=== PATIENT | male | born 1985 | race Caucasian/White ===

== ENCOUNTER 2025-08-31 14:59 | Inpatient (IN) ==
--- NOTE | 2025-08-31 15:32 | Emergency Department Note ---
History of Present Illness General Chief complaint: Abdominal Pain Stated complaint: FLANK PAIN Time Seen by Provider: 08/31/25 15:31 History of Present Illness Maximum Pain Intensity: 8 This is a 40-year-old male with a history of appendectomy that presents to the emergency department via private vehicle with complaints of "right lower quadrant abdominal pain". Patient states this began this past Saturday evening around midnight. He notes that he has been feeling well since his appendectomy about a year ago. Current pain 10/10 with movement, 5/10 at rest. No constipation, diarrhea, nausea, vomiting, chest pain, dyspnea. No fevers or chills. Appendectomy performed he notes at [facility]. Home Medications Medication Instructions Recorded Confirmed Type No Known Home Medications 08/31/25 08/31/25 History Allergies Allergy/AdvReac Type Severity Reaction Status Date / Time No Known Allergies Allergy Unverified 01/11/22 00:46 Past Med/Surg History Problem List (Updated 08/31/25 @ 23:47 by Bruce Mercado PA-C) Abnormal computed tomography of abdomen and pelvis (Acute) History of appendectomy (Acute) Abdominal pain, acute, right lower quadrant (Acute) Hyponatremia Intra-abdominal abscess (Acute) Current smoker No significant past surgical history No chronic diseases present Cellulitis (Acute) Cellulitis (Acute) Surgical History (Updated 08/31/25 @ 23:47 by Bruce Mercado PA-C) History of appendectomy Family History (Updated 08/31/25 @ 19:49 by Jackie Borges MD) Other Family history non-contributory Social History (Updated 08/31/25 @ 19:50 by Jackie Borges MD) Smoking Status: Current every day smoker Tobacco Type: Cigarettes packs per day: 0.5; Cigarettes Per Day: half a pack; Tobacco Cessation Education Requested by Patient: No Hx Alcohol Use: No Hx Substance Use: No Preferred Language: German Communication Ability: Effective Insurance Sales Manager Required: No Beliefs That Will Affect Care: None Current Living Situation: Alone current occupational status: disabled 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" Feels Safe at Home: Yes Safety Concerns: Feels Safe At This Time Review of Systems A total of 10 systems reviewed and were otherwise negative Physical Exam Vital Signs Vital Signs - 24 hr 08/31/25 15:09 08/31/25 18:21 08/31/25 18:27 Temperature 36.6 C Temperature Source Temporal Artery Scan Pulse Rate 112 H Pulse Rate [Right Finger] 82 Respiratory Rate 18 16 Respiratory Effort / Characteristics Non-Labored Spontaneous Non-Labored Spontaneous Respiratory Depth Normal Normal Respiratory Pattern Regular Blood Pressure 119/73 Blood Pressure [Right Arm] 115/75 Blood Pressure Mean 88 Blood Pressure Mean [Right Arm] 88 Pulse Oximetry 98 98 Oxygen Delivery Method Room Air Room Air Room Air Sepsis Recent Fever Within 48 Hours No Sepsis New/Unexplained Change in Mental Status No Sepsis Action Taken by Nursing No Action Required 08/31/25 19:10 Temperature Temperature Source Pulse Rate Pulse Rate [Right Finger] 85 Respiratory Rate 20 Respiratory Effort / Characteristics Respiratory Depth Respiratory Pattern Blood Pressure Blood Pressure [Right Arm] 120/78 Blood Pressure Mean Blood Pressure Mean [Right Arm] 92 Pulse Oximetry 97 Oxygen Delivery Method Room Air Sepsis Recent Fever Within 48 Hours Sepsis New/Unexplained Change in Mental Status Sepsis Action Taken by Nursing VITAL SIGNS - Vital signs and nursing notes were reviewed. Tachycardic, otherwise stable and afebrile GENERAL - 40-year-old male appearing his stated age who is in no acute distress. Communicates well with provider and answers questions appropriately. SKIN - Without rashes. HEAD - NC/AT. EYES - Sclera anicteric. NECK - Neck with FROM. No nuchal rigidity. LUNGS - CTA CARDIAC - RRR ABDOMEN - Abdominal contour normal without pulsations or visible masses. BS normoactive all four quadrants. RLQ abd ttp noted. No palpable masses, hepatosplenomegaly, or ascites noted. EXTREMITIES - No clubbing or peripheral cyanosis. +5/5 strength noted in UE/LE bilaterally. NEUROLOGIC - Cranial nerves II through XII grossly intact. PSYCH -alert, oriented and pleasant on exam Course Administered Medications Hydromorphone HCl (Hydromorphone Inj 1 Mg/Ml Syringe) 1 mg IV Q4 PRN PRN Reason: Severe Pain (Scale 7, 8, 9,10) Stop: 09/14/25 22:08 Last Admin: 08/31/25 23:30 Dose: 1 mg Documented By: [id number] Sodium Chloride (Nss) 1,000 mls @ 125 mls/hr IV .Q8H TARI Stop: 09/01/25 14:44 Last Admin: 08/31/25 23:30 Dose: 125 mls/hr Documented By: [id number] Nicotine (Nicotine 21 Mg/24 Hr Tdsy) 1 patch TD QAM TARI Stop: 09/30/25 19:29 Last Admin: 08/31/25 20:08 Dose: 1 patch Documented By: BRIELLE Discontinued Medications Hydromorphone HCl (Hydromorphone Inj 0.5 Mg/0.5 Ml Syr) 0.5 mg IV NOW STA Stop: 08/31/25 17:59 Last Admin: 08/31/25 19:10 Dose: 0.5 mg Documented By: CHRISTINE Sodium Chloride (Nss) 1,000 mls @ 999 mls/hr IV .Q1H1M ONE Stop: 08/31/25 16:49 Last Infusion: 08/31/25 18:23 Dose: Infused Documented By: Admin: 08/31/25 16:13 Dose: 999 mls/hr Documented By: DEL Piperacillin Sod/Tazobactam Sod (Zosyn) 4.5 gm in 100 mls @ 200 mls/hr IV NOW ONE; Protocol Stop: 08/31/25 18:19 Last Infusion: 08/31/25 19:52 Dose: Infused Documented By: Admin: 08/31/25 19:09 Dose: 200 mls/hr Documented By: CHRISTINE Ioversol (Optiray 320 100ml) 90 ml IV ONCE ONE Stop: 08/31/25 17:12 Last Admin: 08/31/25 17:11 Dose: 90 ml Documented By: EARNESTINE Lorazepam (Lorazepam 1 Mg/1 Ml Syr Ed Inj Use) 1 mg IV NOW STA Stop: 08/31/25 19:54 Last Admin: 08/31/25 20:09 Dose: 1 mg Documented By: BRIELLE Morphine Sulfate (Morphine Sulfate 4 Mg/Ml 1 Ml Carp\\Vial) 4 mg IV NOW STA Stop: 08/31/25 15:50 Last Admin: 08/31/25 16:14 Dose: 4 mg Documented By: DEL Ondansetron HCl (Ondansetron Inj 2 Mg/Ml 2 Ml Vial) 4 mg IV NOW STA Stop: 08/31/25 15:50 Last Admin: 08/31/25 16:14 Dose: 4 mg Documented By: DEL Medical Decision Making Laboratory Data 08/31/25 16:05 08/31/25 16:05 Lab Results 10/08/31/25 08/31/25 Range/Units 16:05 18:25 18:26 WBC 10.35 (4.8-10.8) K/ul RBC 4.98 (4.70-6.10) M/uL Hgb 14.9 (14.0-18.0) g/dl Hct 44.4 (42.0-52.0) % MCV 89.2 (80.0-100.0) fL MCH 29.9 (25.0-34.0) pg MCHC 33.6 (32.0-36.0) g/dL RDW Std Deviation 42.5 (36.4-46.3) fL RDW Coeff of Tracy 13.0 (11.5-14.5) % Plt Count 226 (130-400) K/uL MPV 9.4 (9.4-12.4) fL Immature Gran % (Auto) 0.3 % Neut % (Auto) 74.8 % Lymph % (Auto) 13.7 % Rogers % (Auto) 9.9 % Eos % (Auto) 1.0 % Baso % (Auto) 0.3 % Neut # (Auto) 7.75 H (1.40-6.50) K/uL Lymph # (Auto) 1.42 (1.20-3.40) K/uL Rogers # (Auto) 1.02 H (0.11-0.59) K/uL Eos # (Auto) 0.10 (0.00-0.50) K/uL Baso # (Auto) 0.03 (0.00-0.20) K/uL Immature Gran # (Auto) 0.03 (0.01-0.20) K/uL Sodium 135 L (136-145) mmol/L Potassium 4.0 (3.5-5.1) mmol/L Chloride 103 (98-107) mmol/L Carbon Dioxide 27 (21-32) mmol/L Anion Gap 5 (3-11) BUN 9 (6-23) mg/dl Creatinine 0.95 (0.6-1.4) mg/dl Est Cr Clr Drug Dosing 107.8 ml/min eGFR 103.13 BUN/Creatinine Ratio 9.5 L (10-20) Glucose 87 (70-99(Fasting)) mg/dl Lactate 0.9 (0.4-2.0) mmol/L Calcium 9.1 (8.6-10.3) mg/dl Total Bilirubin 0.8 (0.2-1.0) mg/dl AST 13 (13-39) U/L ALT 6 L (7-52) U/L Alkaline Phosphatase 84 (34-104) U/L Total Protein 7.1 (6.0-8.3) gm/dl Albumin 3.9 (3.4-5.0) gm/dl Globulin 3.2 (2.5-4.0) gm/dl Albumin/Globulin Ratio 1.2 (0.9-2) Lipase < 3 L (11-82) U/L Procalcitonin 0.10 (0-0.5) ng/ml Urine Color Yellow Urine Appearance Clear (Clear) Urine pH 6.5 (4.5-7.5) Ur Specific Alpine > 1.045 H (1.000-1.030) Urine Protein Negative (Negative) Urine Glucose (UA) Negative (Negative) Urine Ketones Trace H (Negative) Urine Blood Trace H (Negative) Urine Nitrite Negative (Negative) Urine Bilirubin Negative (Negative) Urine Urobilinogen Negative (Negative) Ur Leukocyte Esterase Negative (Negative) Urine WBC (Auto) 0-5 (0-5) /hpf Urine RBC (Auto) 0-2 (0-2) /hpf U Hyaline Cast (Auto) 0-2 (0-2) /lpf U Epithel Cells (Auto) 0-2 (0-2) /hpf Urine Bacteria (Auto) None Seen (None Seen) Urine Comment Imaging Data Radiologist's Impression: Abdomen/Pelvis CT 08/31/25 15:49 EXAMINATION: Abdomen and pelvis CT with CLINICAL HISTORY: Right lower quadrant pain, history appendectomy. PRIORS: None TECHNIQUE: Contiguous axial images were obtained through the abdomen and pelvis with the use of intravenous contrast. Sagittal and coronal reformations are supplied. FINDINGS: Hypoventilatory changes in the lung bases. Liver is enlarged measuring 20 cm. The gallbladder, portal vein, pancreas, spleen, under distended stomach, adrenals, aorta and IVC are morphologically unremarkable. Kidneys enhance symmetrically with no hydronephrosis. A large amount of soft tissue swelling in the right lower quadrant. A enhancing fluid collection is present on image 53, series 2 measuring 2.8 x 2.0 cm. A fluid-filled tubular structure is noted arising from the cecum with abrupt truncation, image 53, series 2 withextraluminal adjacent coarse calcifications present. The cecum wall is thickened. An ileocecal valve is noted with the terminal ileum not well-visualized. What appears to be the terminal ileum is indistinct in appearance with wall thickening. No dilated loops of bowel or bowel obstruction. Fluid present in some loops of small bowel. No extraluminal gas. Enlarged lymph nodes noted in the right lower quadrant. Moderate free fluid in the pelvis with increased cellularity. No extraluminal gas or adenopathy urinary bladder distends normally. Seminal vesicles symmetric. Prostate not enlarged. A moderate amount of formed stool and gas present. No acute osseous abnormality. IMPRESSION: Right lower quadrant abscess with large amount of inflammatory change/edema, adenopathy and complicated fluid in the pelvis. The possibility of a tubular structure arising from the cecum is raised which could suggest ruptured appendicitis, though the offered clinical history suggests the patient has had appendectomy. Please confirm this information. Alternatively, complicated terminal ileitis and/or colitis of the ascending colon/cecum is also on the differential diagnosis with adjacent abscess. Surgical consultation is required. The critical results protocol has been activated at 5:36 PM PST 08/31/2025. ACT 112: Positive. There are findings on this examination that require communication between the performing entity and the patient following Patient Test Result Information Act ([place] ACT 112) guidelines. Electronically signed by Elham Monge 08-31-2025 5:39 PM MDM Narrative Patient was seen and evaluated as above in room D05. Review was performed of nursing notes and vital signs. After obtaining a thorough history and physical examination the above work up was performed. Patient presents to us today with the above symptoms. He has abdominal pain. He has tenderness on exam but no guarding or rigidity. Vital signs stable. Options of care were discussed with the patient. IV access was established. Labs were drawn. There is no leukocytosis or concerning anemia. There is mild hyponatremia 135. No evidence of kidney or liver failure. Lipase is not elevated. Procalcitonin within normal range. Urinalysis without infection. A CT scan was obtained of the abdomen/pelvis. Results as above. Right lower quadrant abscess with large amount of inflammatory change/edema, adenopathy and complicated fluid in the pelvis per radiologist as above. I did order IV Zosyn for coverage. [id number] spoke with Dr. Kong, general surgeon. He does recommend IV antibiotics, we will keep the patient n.p.o. after midnight. Medicine admission and routine general surgery consultation. I did discuss with the hospitalist service. Please refer to further documentation regarding his stay. GCS: 15 In the evaluation and treatment of this patient the following differential diagnoses were entertained: Appendicitis, diverticulitis, UTI, pyelonephritis, abscess, perforation, among others Attending Attestation: I Logan Mas MD I have reviewed the advanced practitioner's documentation and agree with the plan of care. I accept the responsibility for the associated risk of managing the patient. I performed a substantive portion of the visit including involvement in all aspects of medical decision making. Impression & Plan Intra-abdominal abscess, Abdominal pain, acute, right lower quadrant, History of appendectomy, Abnormal computed tomography of abdomen and pelvis Discharge Plan Visit Data Chief Complaint: Abdominal Pain Stated Complaint: FLANK PAIN ED Provider: Logan Mas ED Midlevel Provider: Bruce Mercado Discharge Problem: Intra-abdominal abscess, Abdominal pain, acute, right lower quadrant, History of appendectomy, Abnormal computed tomography of abdomen and pelvis Patient Disposition: Admitted As Inpatient Condition: Good Discharge Instructions Interventions: ED Discharge Assessment Last Done: 08/31/25 21:51
[2025-08-31] MEDS: SODIUM CHLORIDE 0.9% 1,000 ML IV ONE (16:13)
[2025-08-31] MEDS: ONDANSETRON INJ 2 MG/ML 2 ML VIAL IV STA (16:14)
[2025-08-31] MEDS: MoRPHine SULFATE 4 MG/ML 1 ML CARP\\VIAL IV STA (16:14)
[2025-08-31 16:24] LABS: Hematocrit (blood only) 44.4 % (42.0-52.0); Hemoglobin 14.9 g/dl (14.0-18.0); Immature Granulocytes # (auto) 0.03 K/uL (0.01-0.20); Immature Granulocytes % (auto) 0.3 %; Mean Corpuscular Hemoglobin 29.9 pg (25.0-34.0); Mean Corpuscular Volume 89.2 fL (80.0-100.0); Platelet Count 226 K/uL (130-400); RDW Standard Deviation 42.5 fL (36.4-46.3); Red Blood Count 4.98 M/uL (4.70-6.10); White Blood Count 10.35 K/ul (4.8-10.8)
[2025-08-31 16:48] LABS: Anion Gap 5 (3-11); Blood Urea Nitrogen 9 mg/dl (6-23); Calcium 9.1 mg/dl (8.6-10.3); Carbon Dioxide 27 mmol/L (21-32); Chloride 103 mmol/L (98-107); Creatinine Clr Calc Pharmacy 107.8 ml/min; Glucose 87 mg/dl (70-99(Fasting)); Potassium 4.0 mmol/L (3.5-5.1); Sodium 135 mmol/L (136-145)
[2025-08-31 16:54] LABS: Alanine Aminotransferase 6 U/L (7-52); Albumin Globulin Ratio 1.2 (0.9-2); Albumin Level 3.9 gm/dl (3.4-5.0); Alkaline Phosphatase 84 U/L (34-104); Bilirubin,Total 0.8 mg/dl (0.2-1.0); Globulin 3.2 gm/dl (2.5-4.0); Lipase < 3 U/L (11-82); Total Protein 7.1 gm/dl (6.0-8.3)
[2025-08-31] MEDS: OPTIRAY 320 100ml IV ONE (17:11)
--- NOTE | 2025-08-31 17:39 | CT Scan Report ---
EXAMINATION: Abdomen and pelvis CT with CLINICAL HISTORY: Right lower quadrant pain, history appendectomy. PRIORS: None TECHNIQUE: Contiguous axial images were obtained through the abdomen and pelvis with the use of intravenous contrast. Sagittal and coronal reformations are supplied. FINDINGS: Hypoventilatory changes in the lung bases. Liver is enlarged measuring 20 cm. The gallbladder, portal vein, pancreas, spleen, under distended stomach, adrenals, aorta and IVC are morphologically unremarkable. Kidneys enhance symmetrically with no hydronephrosis. A large amount of soft tissue swelling in the right lower quadrant. A enhancing fluid collection is present on image 53, series 2 measuring 2.8 x 2.0 cm. A fluid-filled tubular structure is noted arising from the cecum with abrupt truncation, image 53, series 2 withextraluminal adjacent coarse calcifications present. The cecum wall is thickened. An ileocecal valve is noted with the terminal ileum not well-visualized. What appears to be the terminal ileum is indistinct in appearance with wall thickening. No dilated loops of bowel or bowel obstruction. Fluid present in some loops of small bowel. No extraluminal gas. Enlarged lymph nodes noted in the right lower quadrant. Moderate free fluid in the pelvis with increased cellularity. No extraluminal gas or adenopathy urinary bladder distends normally. Seminal vesicles symmetric. Prostate not enlarged. A moderate amount of formed stool and gas present. No acute osseous abnormality. IMPRESSION: Right lower quadrant abscess with large amount of inflammatory change/edema, adenopathy and complicated fluid in the pelvis. The possibility of a tubular structure arising from the cecum is raised which could suggest ruptured appendicitis, though the offered clinical history suggests the patient has had appendectomy. Please confirm this information. Alternatively, complicated terminal ileitis and/or colitis of the ascending colon/cecum is also on the differential diagnosis with adjacent abscess. Surgical consultation is required. The critical results protocol has been activated at 5:36 PM PST 08/31/2025. ACT 112: Positive. There are findings on this examination that require communication between the performing entity and the patient following Patient Test Result Information Act ([place] ACT 112) guidelines. Electronically signed by Elham Monge 08-31-2025 5:39 PM
[2025-08-31 18:37] LABS: Appearance Urine Clear (Clear); Bacteria Urine Automated None Seen (None Seen); Cast Urine Automated 0-2 /lpf (0-2); Epithelial Cell Urine Auto 0-2 /hpf (0-2); Glucose Urine UA Negative (Negative); RBC Urine Automated 0-2 /hpf (0-2); WBC Urine Automated 0-5 /hpf (0-5)
--- NOTE | 2025-08-31 19:06 | History & Physical Report ---
Date of Service August 31, 2025 Assessment & Plan (1) Intra-abdominal abscess: (2) Hyponatremia: (3) Current smoker: Plan This patient is a 40-year-old male with a history of smoking and prior appendectomy in 2023 who presents to the ED with right lower quadrant abdominal pain that came on on the night of 08/29. The pain is severe at a 10/10 with movement, 5/10 at rest. It is in the right lower quadrant and radiates around to the right flank and is constant. His last bowel movement was on 08/28 and denies blood in the stool. Denies nausea or vomiting, no fevers or chills, no hematuria or urinary symptoms. His appendectomy was performed at [facility] and copies of the hospital records from that time were being obtained at the time of admission. In the ED, he was found to have a normal CBC, normal CMP, lipase, lactate, and procalcitonin. His UA showed trace blood and ketones but was negative for RBCs. A CT A/P with IV contrast showed an enlarged liver at 20 cm, a large amount of soft tissue swelling in the right lower quadrant with an enhancing fluid collection measuring 2.8 x 2.0 cm. There is also a fluid-filled tubular structure noted arising from the cecum and cecal wall and terminal ileum thickening with moderate fleet fluid in the pelvis but no pneumoperitoneum or obstruction. Radiologist thought this was likely a RLQ abscess with a large amount of inflammatory change/edema, adenopathy, and complicated fluid in the pelvis which could represent ruptured appendicitis although he has a history of appendectomy. Alternatively, could represent complicated terminal ileitis and/or colitis of the ascending colon/cecum with adjacent abscess. The on-call surgeon was contacted who recommended admission for IV antibiotics, to keep n.p.o. and for surgical consultation routinely. He will be admitted for right lower quadrant intra-abdominal abscess with possible ileitis/colitis versus ruptured appendicitis. #Right lower quadrant abdominal pain/intra-abdominal abscess-possible ileitis/colitis versus ruptured appendicitis of the remnant appendix? No leukocytosis or lactic acidosis, no fevers or chills and vital signs are normal except for mild tachycardia on arrival which is now improved. He remains hemodynamically stable. He has never had a colonoscopy and no family history of GI cancers. No anemia. - Admit to medical/surgical unit - Keep n.p.o. and give LR at 125 mL/h - Continue IV Zosyn started in the ED - Consult general surgery for further review of CT scan and to see if needs exploratory laparoscopy/laparotomy - Will try to obtain records from hospitalization at [facility] to include operative report and pathology report #Current smoker-start nicotine patch 21 mg daily if desired - Give IV Ativan as needed for anxiety #Hyponatremia-mild at 135 - Give IV fluids - Follow BMP in the morning DVT prophylaxis-SCDs only in case of need for surgery Disposition-admit to medical/surgical unit History of Present Illness Chief Complaint: Abdominal pain Primary Care Provider: TOY Rouse This patient is a 40-year-old male with a history of smoking and prior appendectomy in 2023 who presents to the ED with right lower quadrant abdominal pain that came on on the night of 08/29. The pain is severe at a 10/10 with movement, 5/10 at rest. It is in the right lower quadrant and radiates around to the right flank and is constant. His last bowel movement was on 08/28 and denies blood in the stool. Denies nausea or vomiting, no fevers or chills, no hematuria or urinary symptoms. His appendectomy was performed at [facility] and copies of the hospital records from that time were being obtained at the time of admission. In the ED, he was found to have a normal CBC, normal CMP, lipase, lactate, and procalcitonin. His UA showed trace blood and ketones but was negative for RBCs. A CT A/P with IV contrast showed an enlarged liver at 20 cm, a large amount of soft tissue swelling in the right lower quadrant with an enhancing fluid collection measuring 2.8 x 2.0 cm. There is also a fluid-filled tubular structure noted arising from the cecum and cecal wall and terminal ileum thickening with moderate fleet fluid in the pelvis but no pneumoperitoneum or obstruction. Radiologist thought this was likely a RLQ abscess with a large amount of inflammatory change/edema, adenopathy, and complicated fluid in the pelvis which could represent ruptured appendicitis although he has a history of appendectomy. Alternatively, could represent complicated terminal ileitis and/or colitis of the ascending colon/cecum with adjacent abscess. The on-call surgeon was contacted who recommended admission for IV antibiotics, to keep n.p.o. and for surgical consultation routinely. He will be admitted for right lower quadrant intra-abdominal abscess with possible ileitis/colitis versus ruptured appendicitis. Allergies Allergy/AdvReac Type Severity Reaction Status Date / Time No Known Allergies Allergy Unverified 01/11/22 00:46 Home Medications Medication Instructions Recorded Confirmed Type No Known Home Medications 08/31/25 08/31/25 History Past Med/Surg History Problem List Hyponatremia Intra-abdominal abscess Current smoker No significant past surgical history No chronic diseases present Cellulitis (Acute) Cellulitis (Acute) Surgical History (Updated 08/31/25 @ 19:17 by Jackie Borges MD) History of appendectomy Family History (Updated 08/31/25 @ 19:49 by Jackie Borges MD) Other Family history non-contributory Social History (Updated 08/31/25 @ 19:50 by Jackie Borges MD) Smoking Status: Current every day smoker Tobacco Type: Cigarettes packs per day: 0.5; Hx Alcohol Use: No Hx Substance Use: No Preferred Language: Swazi current occupational status: disabled 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" Feels Safe at Home: Yes Review of Systems Review of Systems: All systems reviewed & are unremarkable except as noted in HPI & below Physical Exam Constitutional: WD/WN, vitals as above Eyes: PERRL, conjunctivae normal, anicteric sclerae ENMT: external ear and nose normal, oropharynx normal Neck: trachea midline, no thyromegaly Respiratory: normal respiratory effort, lungs clear to auscultation Cardiovascular: RRR, no murmur, no edema Chest (Breasts): Chest: normal inspection of chest Gastrointestinal (Abdomen): Inspection/Auscultation: normal bowel sounds; + abdomen abnormal to inspection (Laparoscopy incisional scars present) and abdomen not distended Percussion/Palpation: + abdomen tender (Exquisitely tender in RLQ and right periumbilical region without rebound), + guarding (And RLQ) and abdomen soft; abdomen not rigid Musculoskeletal: Extremities: extremities normal to inspection; no cyanosis and no clubbing Skin: no rashes, warm and dry Neurologic: moves all extremities and awake; no focal motor deficits Psychiatric: A+Ox3, euthymic affect Lymphatic: no lymphedema Results & Data Results & Data Vital Signs (Past 12 Hours) Vital Signs Temp Pulse Pulse Resp BP BP Pulse Ox 08/31/25 18:27 08/31/25 18:21 82 16 115/75 98 08/31/25 15:09 36.6 C 112 H 18 119/73 98 O2 Del Method 08/31/25 18:27 Room Air 08/31/25 18:21 Room Air 08/31/25 15:09 Room Air Laboratory Results CBC, CMP, lipase, lactate, procalcitonin, UA reviewed Diagnostic Findings CT abdomen/pelvis reviewed Code Status & VTE Plan Code Status Full code VTE Prophylaxis Plan VTE Prophylaxis will be ordered: Yes PG Care Time/CCT Total # of Minutes Spent Total Time Spent with Patient: Total time spent is greater than 50% in coordination of care (as documented) at patient's floor/unit and/or counseling patient: Coding Level of Care Code 25109 INT INP/OBS CARE 3/75MIN Diagnoses Intra-abdominal abscess K65.1 Hyponatremia E87.1 Current smoker F17.200
[2025-08-31] MEDS: PIPERACILLIN/TAZOBACTAM 4.5 GM/100 ML BAG IV ONE (19:09)
[2025-08-31] MEDS: HYDROmorphone INJ 0.5 MG/0.5 ML SYR IV STA (19:10)
[2025-08-31] MEDS ORDERED: LORazepam Inj 1 MG in SYRINGE 0.5 ML IV STA (19:46)
[2025-08-31] MEDS: NICOTINE 21 MG/24 HR TDSY TD SCH (20:08)
[2025-08-31] MEDS: LORazepam 1 MG/1 ML SYR ED Inj Use IV STA (20:09)
[2025-08-31] MEDS ORDERED: ONDANSETRON INJ 2 MG/ML 2 ML VIAL IV PRN (22:09)
[2025-08-31] MEDS: HYDROmorphone INJ 1 MG/ML SYRINGE IV PRN (23:30)
[2025-08-31] MEDS: SODIUM CHLORIDE 0.9% 1,000 ML IV SCH (23:30)
[2025-09-01] MEDS: PIPERACILLIN/TAZOBACTAM 4.5 GM/100 ML BAG IV SCH (00:32)
[2025-09-01] MEDS: LACTATED RINGER'S 1,000 ML IV SCH (01:33)
[2025-09-01 07:29] LABS: Hematocrit (blood only) 39.9 % (42.0-52.0); Hemoglobin 13.8 g/dl (14.0-18.0); Immature Granulocytes # (auto) 0.04 K/uL (0.01-0.20); Immature Granulocytes % (auto) 0.4 %; Mean Corpuscular Hemoglobin 31.1 pg (25.0-34.0); Mean Corpuscular Volume 89.9 fL (80.0-100.0); Platelet Count 217 K/uL (130-400); RDW Standard Deviation 42.5 fL (36.4-46.3); Red Blood Count 4.44 M/uL (4.70-6.10); White Blood Count 9.96 K/ul (4.8-10.8)
[2025-09-01 07:56] LABS: Alanine Aminotransferase 5.0 U/L (7-52); Albumin Globulin Ratio 1.2 (0.9-2); Albumin Level 3.3 gm/dl (3.4-5.0); Alkaline Phosphatase 70.0 U/L (34-104); Anion Gap 8.0 (3-11); Bilirubin,Total 0.7 mg/dl (0.2-1.0); Blood Urea Nitrogen 7.0 mg/dl (6-23); Calcium 8.6 mg/dl (8.6-10.3); Carbon Dioxide 25.0 mmol/L (21-32); Chloride 105.0 mmol/L (98-107); Creatinine Clr Calc Pharmacy 107.3 ml/min; Globulin 2.8 gm/dl (2.5-4.0); Glucose 84.0 mg/dl (70-99(Fasting)); Magnesium 2.1 mg/dl (1.7-2.4); Potassium 3.9 mmol/L (3.5-5.1); Sodium 138.0 mmol/L (136-145); Total Protein 6.1 gm/dl (6.0-8.3)
[2025-09-01 08:03] VITALS: TEMP 98.4
[2025-09-01] MEDS: REMOVE NICODERM PATCH SCH (08:39)
--- NOTE | 2025-09-01 10:31 | Surgery Consultation ---
<Statement entered by Zaida Bo MD - 09/01/25 16:15> I independently saw the patient and I agree with the assessment and plan of care. Interventional radiology reported that the collection is too small to drain, therefore plan will be for IV antibiotics and transition to oral antibiotics and likely interval appendectomy in about 4- 6 weeks. Date of Consultation September 01, 2025 Assessment & Plan (1) History of appendectomy: This is a 40yM with a PMH of prior appendectomy in 2023 at outside hospital ([facility]) who presented to the [facility] ER on 08/31/25 with complaints of right lower quadrant abdominal pain. Patient denies fevers/chills, nausea/vomiting. In the ER he underwent a CT a/p that showed a right lower quadrant abscess with large amount of inflammatory change/edema, adenopathy and complicated fluid in the pelvis. This could be 2/2 perforated appendicitis despite history of appendectomy in the past. OSH post op note obtained by medical team, appears to be a difficult procedure and it was obliterated. Today patient feeling pain, but a bit improved from when he came in. Today labs show WBC 9.9, Hbg 13.8, Cr 0.9. Vitals are stable and patient is afebrile. He is resting in bed in no acute distress. + tenderness to palpation in the RLQ region. Will ask IR to see if they can review patient's imaging for consideration of aspiration or drainage of abscess. He could have a retained portion of appendix, but will see how he fairs if we can get a drain in the collection. Could consider future laparoscopic procedure to evaluate for retained appendix once inflammation is improved. For now continue NPO, IV abx, and await IR determination on if a drain is possible. No plans for surgical intervention at this time. (2) Intra-abdominal abscess: History of Present Illness Attending Physician: Jackie Borges MD History of Present Illness This is a 40yM with a PMH of prior appendectomy in 2023 at outside hospital ([facility]) who presented to the [facility] ER on 08/31/25 with complaints of right lower quadrant abdominal pain. Patient denies fevers/chills, nausea/vomiting. In the ER he underwent a CT a/p that showed a right lower quadrant abscess with large amount of inflammatory change/edema, adenopathy and complicated fluid in the pelvis. This could be 2/2 to perforated appendicitis, despite h/o appendectomy in the past. OSH post op note obtained by medical team, appears to be a difficult procedure and it was obliterated. Today patient feeling pain, but a bit improved from when he came in. Allergies Allergy/AdvReac Type Severity Reaction Status Date / Time No Known Allergies Allergy Unverified 01/11/22 00:46 Home Medications Medication Instructions Recorded Confirmed Type No Known Home Medications 08/31/25 08/31/25 History Patient History Surgical History History of appendectomy Family History Other Family history non-contributory Social History Smoking Status: Current every day smoker Tobacco Type: Cigarettes packs per day: 0.5; Cigarettes Per Day: half a pack; Tobacco Cessation Education Requested by Patient: No Hx Alcohol Use: No Hx Substance Use: No Preferred Language: Taiwanese Communication Ability: Effective 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 Beliefs That Will Affect Care: None Current Living Situation: Alone current occupational status: disabled 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" Feels Safe at Home: Yes Safety Concerns: Feels Safe At This Time Review of Systems Constitutional: no fever and no chills Respiratory: no dyspnea Cardiovascular: no chest pain Gastrointestinal: + abdominal pain (right lower abdomen ); no nausea and no vomiting Physical Exam Physical Exam: awake/alert, no distress Respiratory: normal respiratory effort Cardiovascular: Rate/Rhythm: regular rate Gastrointestinal (Abdomen): Percussion/Palpation: + abdomen tender (ttp right lower abdomen ) and abdomen soft Results & Data Vital Signs (Past 12 Hours) Vital Signs Temp Pulse Resp BP Pulse Ox O2 Del Method 09/01/25 08:02 98.4 F 76 18 105/66 97 Room Air Diagnostic Findings EXAMINATION: Abdomen and pelvis CT with CLINICAL HISTORY: Right lower quadrant pain, history appendectomy. PRIORS: None TECHNIQUE: Contiguous axial images were obtained through the abdomen and pelvis with the use of intravenous contrast. Sagittal and coronal reformations are supplied. FINDINGS: Hypoventilatory changes in the lung bases. Liver is enlarged measuring 20 cm. The gallbladder, portal vein, pancreas, spleen, under distended stomach, adrenals, aorta and IVC are morphologically unremarkable. Kidneys enhance symmetrically with no hydronephrosis. A large amount of soft tissue swelling in the right lower quadrant. A enhancing fluid collection is present on image 53, series 2 measuring 2.8 x 2.0 cm. A fluid-filled tubular structure is noted arising from the cecum with abrupt truncation, image 53, series 2 withextraluminal adjacent coarse calcifications present. The cecum wall is thickened. An ileocecal valve is noted with the terminal ileum not well-visualized. What appears to be the terminal ileum is indistinct in appearance with wall thickening. No dilated loops of bowel or bowel obstruction. Fluid present in some loops of small bowel. No extraluminal gas. Enlarged lymph nodes noted in the right lower quadrant. Moderate free fluid in the pelvis with increased cellularity. No extraluminal gas or adenopathy urinary bladder distends normally. Seminal vesicles symmetric. Prostate not enlarged. A moderate amount of formed stool and gas present. No acute osseous abnormality. IMPRESSION: Right lower quadrant abscess with large amount of inflammatory change/edema, adenopathy and complicated fluid in the pelvis. The possibility of a tubular structure arising from the cecum is raised which could suggest ruptured appendicitis, though the offered clinical history suggests the patient has had appendectomy. Please confirm this information. Alternatively, complicated terminal ileitis and/or colitis of the ascending colon/cecum is also on the differential diagnosis with adjacent abscess. Surgical consultation is required. The critical results protocol has been activated at 5:36 PM PST 08/31/2025. ACT 112: Positive. There are findings on this examination that require communication between the performing entity and the patient following Patient Test Result Information Act ([place] ACT 112) guidelines. Electronically signed by Elham Monge 08-31-2025 5:39 PM Dictated: 08/31/25 1709 Transcribed: PG Care Time/CCT Total # of Minutes Spent Total Time Spent with Patient: Total time spent is greater than 50% in coordination of care (as documented) at patient's floor/unit and/or counseling patient: Coding Level of Care Code 97987 INT INP/OBS CARE 1/40MIN Diagnoses History of appendectomy Z90.49 Intra-abdominal abscess K65.1
[2025-09-01] MEDS: LORazepam Inj 1 MG in SYRINGE 0.5 ML IV PRN (17:29)
[2025-09-01] MEDS ORDERED: LORazepam Inj 1 MG in SYRINGE 0.5 ML IV PRN (17:49)
--- NOTE | 2025-09-01 17:50 | Hospitalist Progress Note ---
Date of Service September 01, 2025 Assessment & Plan (1) Intra-abdominal abscess: (2) Hyponatremia: (3) Current smoker: Plan This patient is a 40-year-old male with a history of smoking and prior appendectomy in 2023 who presents to the ED with right lower quadrant abdominal pain that came on on the night of 08/29. The pain is severe at a 10/10 with movement, 5/10 at rest. It is in the right lower quadrant and radiates around to the right flank and is constant. His last bowel movement was on 08/28 and denies blood in the stool. Denies nausea or vomiting, no fevers or chills, no hematuria or urinary symptoms. His appendectomy was performed at [facility] and copies of the hospital records from that time were being obtained at the time of admission. In the ED, he was found to have a normal CBC, normal CMP, lipase, lactate, and procalcitonin. His UA showed trace blood and ketones but was negative for RBCs. A CT A/P with IV contrast showed an enlarged liver at 20 cm, a large amount of soft tissue swelling in the right lower quadrant with an enhancing fluid collection measuring 2.8 x 2.0 cm. There is also a fluid-filled tubular structure noted arising from the cecum and cecal wall and terminal ileum thickening with moderate fleet fluid in the pelvis but no pneumoperitoneum or obstruction. Radiologist thought this was likely a RLQ abscess with a large amount of inflammatory change/edema, adenopathy, and complicated fluid in the pelvis which could represent ruptured appendicitis although he has a history of appendectomy. Alternatively, could represent complicated terminal ileitis and/or colitis of the ascending colon/cecum with adjacent abscess. The on-call surgeon was contacted who recommended admission for IV antibiotics, to keep n.p.o. and for surgical consultation routinely. He is admitted for right lower quadrant intra-abdominal abscess with possible ileitis/colitis versus ruptured appendicitis. #Right lower quadrant abdominal pain/intra-abdominal abscess-possible ileitis/colitis versus ruptured appendicitis of the remnant appendix? I obtained his operative report from 2023 which shows a very complicated ruptured appendicitis. The appendix had to be removed in multiple fragments and there was a lot of inflammation requiring MIGUEL drain and IV antibiotics. No leukocytosis or lactic acidosis, no fevers or chills and vital signs are normal except for mild tachycardia on arrival which is now improved. He remains hemodynamically stable. He is afebrile and pain is now much improved. He has never had a colonoscopy and no family history of GI cancers. No anemia. General surgery saw the patient and plans for antibiotics to cool off the infection and then interval appendectomy in 4 to 6 weeks. - Continue n.p.o. status and NS at 125 mL/h - Continue IV Zosyn-Will discuss with general surgery about IV antibiotics versus oral and for length of course after discharge - General Surgery plans for interval appendectomy in 4 to 6 weeks #Current smoker-start nicotine patch 21 mg daily. Patient very anxious to go outside the hospital and smoke which was discouraged - Give IV Ativan as needed for anxiety and increased frequency to every 6 hours as needed - Add nicotine lozenges #Hyponatremia-mild at 135 on admission and now resolved to normal with IV fluids likely from poor p.o. intake, hypovolemia - Continue IV fluids - Follow BMP in the morning DVT prophylaxis-SCDs only in case of need for surgery Disposition-continued stay medical/surgical unit Admission and Anticipated Discharge Date Admission Date: August 31, 2025 Subjective Patient reports the pain in his abdomen is much improved today. Down to a 4 out of 10. No nausea. He moved his bowels once and had no blood. No other concerns. Anxious to smoke a cigarette. I discussed his care with the surgery PA Physical Exam Constitutional: WD/WN, vitals as above Neck: trachea midline, no thyromegaly Respiratory: normal respiratory effort, lungs clear to auscultation Cardiovascular: RRR, no murmur, no edema Chest (Breasts): Chest: normal inspection of chest Gastrointestinal (Abdomen): Inspection/Auscultation: normal bowel sounds; abdomen not distended Percussion/Palpation: + abdomen tender (And RLQ, mild, much improved) and abdomen soft; no guarding and abdomen not rigid Musculoskeletal: Extremities: extremities normal to inspection; no cyanosis and no clubbing Skin: no rashes, warm and dry Neurologic: moves all extremities and awake; no focal motor deficits Psychiatric: A+Ox3, euthymic affect Lymphatic: no lymphedema Results & Data Results & Data Vital Signs (Past 12 Hours) Vital Signs Temp Pulse Resp BP Pulse Ox O2 Del Method 09/01/25 15:23 36.9 C 67 18 110/70 98 Room Air 09/01/25 08:02 36.9 C 76 18 105/66 97 Room Air Laboratory Results CBC, BMP, LFTs, magnesium, blood cultures reviewed PG Care Time/CCT Total # of Minutes Spent Total Time Spent with Patient: Total time spent is greater than 50% in coordination of care (as documented) at patient's floor/unit and/or counseling patient: Coding Level of Care Code 89049 SUB INP/OBS CARE 2/35MIN Diagnoses Intra-abdominal abscess K65.1 Hyponatremia E87.1 Current smoker F17.200
[2025-09-01] MEDS: NICOTINE POLACRILEX 2 MG GUM MT PRN (18:22)
[2025-09-02 06:33] LABS: Hematocrit (blood only) 38.3 % (42.0-52.0); Hemoglobin 13.0 g/dl (14.0-18.0); Immature Granulocytes # (auto) 0.03 K/uL (0.01-0.20); Immature Granulocytes % (auto) 0.4 %; Mean Corpuscular Hemoglobin 30.6 pg (25.0-34.0); Mean Corpuscular Volume 90.1 fL (80.0-100.0); Platelet Count 240 K/uL (130-400); RDW Standard Deviation 42.3 fL (36.4-46.3); Red Blood Count 4.25 M/uL (4.70-6.10); White Blood Count 7.47 K/ul (4.8-10.8)
[2025-09-02] MEDS: HYDROmorphone INJ 0.5 MG/0.5 ML SYR IV PRN (07:55)
[2025-09-02 08:24] VITALS: PULSE 70; RESP 20; O2SAT 96
[2025-09-02 08:37] LABS: Anion Gap 8.0 (3-11); Calcium 8.6 mg/dl (8.6-10.3); Carbon Dioxide 23.0 mmol/L (21-32); Chloride 109.0 mmol/L (98-107); Potassium 4.1 mmol/L (3.5-5.1); Sodium 140.0 mmol/L (136-145)
[2025-09-02 08:42] LABS: Blood Urea Nitrogen 6.0 mg/dl (6-23); Creatinine Clr Calc Pharmacy 117.5 ml/min; Glucose 91.0 mg/dl (70-99(Fasting))
--- NOTE | 2025-09-02 10:29 | Discharge Summary ---
Discharge Summary Date of Service September 02, 2025 Principal Dx & Hospital Course #1 = Principal Diagnosis (1) Intra-abdominal abscess: (2) Hyponatremia: (3) Current smoker: Plan This patient is a 40-year-old male with a history of smoking and prior appendectomy in 2023 who presents to the ED with right lower quadrant abdominal pain that came on on the night of 08/29. The pain is severe at a 10/10 with movement, 5/10 at rest. It is in the right lower quadrant and radiates around to the right flank and is constant. His last bowel movement was on 08/28 and denies blood in the stool. Denies nausea or vomiting, no fevers or chills, no hematuria or urinary symptoms. His appendectomy was performed at [facility] and copies of the hospital records from that time were being obtained at the time of admission. In the ED, he was found to have a normal CBC, normal CMP, lipase, lactate, and procalcitonin. His UA showed trace blood and ketones but was negative for RBCs. A CT A/P with IV contrast showed an enlarged liver at 20 cm, a large amount of soft tissue swelling in the right lower quadrant with an enhancing fluid collection measuring 2.8 x 2.0 cm. There is also a fluid-filled tubular structure noted arising from the cecum and cecal wall and terminal ileum thickening with moderate fleet fluid in the pelvis but no pneumoperitoneum or obstruction. Radiologist thought this was likely a RLQ abscess with a large amount of inflammatory change/edema, adenopathy, and complicated fluid in the pelvis which could represent ruptured appendicitis although he has a history of appendectomy. Alternatively, could represent complicated terminal ileitis and/or colitis of the ascending colon/cecum with adjacent abscess. The on-call surgeon was contacted who recommended admission for IV antibiotics, to keep n.p.o. and for surgical consultation routinely. He is admitted for right lower quadrant intra-abdominal abscess with possible ileitis/colitis versus ruptured appendicitis. #Right lower quadrant abdominal pain/intra-abdominal abscess-possible ileitis/colitis versus ruptured appendicitis of the remnant appendix? I obtained his operative report from 2023 which shows a very complicated ruptured appendicitis. The appendix had to be removed in multiple fragments and there was a lot of inflammation requiring MIGUEL drain and IV antibiotics. No leukocytosis or lactic acidosis, no fevers or chills and vital signs are normal except for mild tachycardia on arrival which is now resolved. He is afebrile and pain is now much improved. He has never had a colonoscopy and no family history of GI cancers. No anemia. General surgery saw the patient and plans for antibiotics to cool off the infection and then interval appendectomy in 4 to 6 weeks. - his diet was advanced to regular after 1-2 days of NPO status - He was given IV Zosyn and dc to home on po Augmentin 875/125mg po bid x 14 days - General Surgery plans for interval appendectomy in 4 to 6 weeks-appt will be scheduled in 2 weeks with Surgery #Current smoker-strongly encouraged smoking cessation -can use NRT patches, gum after discharge -discuss with PCP about Wellbutrin or Chantix #Hyponatremia-mild at 135 on admission and now resolved to normal with IV fluids likely from poor p.o. intake, hypovolemia DVT prophylaxis-SCDs, ambulation Disposition-stable for dc to home Notes For Next Care Provider Will need interval repeat appendectomy in 4-6 weeks Medication Changes From Visit Added Augmentin bid x 14 days Admission HPI Per Admitting Provider This patient is a 40-year-old male with a history of smoking and prior appendectomy in 2023 who presents to the ED with right lower quadrant abdominal pain that came on on the night of 08/29. The pain is severe at a 10/10 with movement, 5/10 at rest. It is in the right lower quadrant and radiates around to the right flank and is constant. His last bowel movement was on 08/28 and denies blood in the stool. Denies nausea or vomiting, no fevers or chills, no hematuria or urinary symptoms. His appendectomy was performed at [facility] and copies of the hospital records from that time were being obtained at the time of admission. In the ED, he was found to have a normal CBC, normal CMP, lipase, lactate, and procalcitonin. His UA showed trace blood and ketones but was negative for RBCs. A CT A/P with IV contrast showed an enlarged liver at 20 cm, a large amount of soft tissue swelling in the right lower quadrant with an enhancing fluid collection measuring 2.8 x 2.0 cm. There is also a fluid-filled tubular structure noted arising from the cecum and cecal wall and terminal ileum thickening with moderate fleet fluid in the pelvis but no pneumoperitoneum or obstruction. Radiologist thought this was likely a RLQ abscess with a large amount of inflammatory change/edema, adenopathy, and complicated fluid in the pelvis which could represent ruptured appendicitis although he has a history of appendectomy. Alternatively, could represent complicated terminal ileitis and/or colitis of the ascending colon/cecum with ad jacent abscess. The on-call surgeon was contacted who recommended admission for IV antibiotics, to keep n.p.o. and for surgical consultation routinely. He will be admitted for right lower quadrant intra-abdominal abscess with possible ileitis/colitis versus ruptured appendicitis. Discharge Exam Constitutional WD/WN, vitals as above Neck trachea midline, no thyromegaly Respiratory normal respiratory effort, lungs clear to auscultation Cardiovascular RRR, no murmur, no edema Chest (Breasts) Chest: normal inspection of chest Gastrointestinal (Abdomen) Inspection/Auscultation: normal bowel sounds; + abdomen abnormal to inspection (Laparoscopy incisional scars present) and abdomen not distended Percussion/Palpation: + abdomen tender (And RLQ, mild, much improved) and abdomen soft; no guarding and abdomen not rigid Musculoskeletal Extremities: extremities normal to inspection; no cyanosis and no clubbing Skin no rashes, warm and dry Neurologic moves all extremities and awake; no focal motor deficits Psychiatric A+Ox3, euthymic affect Lymphatic no lymphedema Discharge Plan Discharge Items Patient Disposition: Home - Self-Care Reason For Visit: INTRA-ABDOMINAL ABSCESS Discharge Diagnosis: Intra-abdominal abscess Condition on Discharge: Fair Activity: Resume your previous activity Non-emergency contact: Primary Care Provider and Surgeon Call non-emergency contact if: you have any medication questions, your symptoms worsen, your pain is not controlled, your pain is worsening, your pain is unusual for you, your pain is concerning for you, you have a fever and your temperature is above 101 Follow-up/Referrals: Portia June CRNP [Primary Care Provider] - 09/09/25 9:20 am () Zaida Bo MD [Surgeon] - (please call to schedule follow up in the office in 1-2 weeks to discuss elective removal of your appendix in about 6 weeks time) Diet: Regular Addtl Attending Provider Instructions: Please continue taking the Augmentin 1 pill twice a day for 2 weeks. Follow-up with the surgeon to discuss surgery in 4 to 6 weeks time to remove the rest of your appendix which is infected. If you develop worsening abdominal pain, fevers or chills, nausea/vomiting, or any other acute concerns, please return to the hospital. It was a pleasure taking care of you! If you have any questions about your care before your hospital follow-up visit with your primary care provider, please call [phone] and ask to be transferred to the [facility] Medicine office. Sincerely, Jackie Borges M.D. Pending Studies at Discharge: Yes (Blood cultures) Stand-Alone Forms: My [facility], Smoking Cessation Medications and DC Order Prescriptions: New amoxicillin-pot clavulanate 875-125 mg tablet 1 tab PO BID Qty: 28 0RF Discharge Orders: Discharge Order (Routine); Ordered 09/02/25 Ordered By: Jackie Landry/Other Patient Handouts: Intra-Abdominal Abscess Admission Data Admit Date/Time: 08/31/25 19:27 Attending Provider: Jackie Borges Admit Provider: Jackie Borges Primary Care Provider: Portia June Other Providers: Jackie Borges; Mir Kong Other Interventions: Discharge Summary Assessment (RN) Last Done: 09/02/25 10:33 Hospital Stay Data Consultations 08/31/25 19:05 ED Decision to Admit Stat 08/31/25 22:09 Consult General Surgery Routine Diagnostic Imagining Performed 08/31/25 15:49 CT abd pelvis IV con only Stat Pending Results Patient Have Any Pending Studies at Discharge: Yes (Blood cultures) Discharge Instructions Given to Patient (Per Discharging Provider) Please continue taking the Augmentin 1 pill twice a day for 2 weeks. Follow-up with the surgeon to discuss surgery in 4 to 6 weeks time to remove the rest of your appendix which is infected. If you develop worsening abdominal pain, fevers or chills, nausea/vomiting, or any other acute concerns, please return to the hospital. It was a pleasure taking care of you! If you have any questions about your care before your hospital follow-up visit with your primary care provider, please call [phone] and ask to be transfer red to the [facility] office. Sincerely, Jackie Borges M.D. Total Time Total Time Spent Total Time Spent (In Minutes): 35 min Total Time Includes: Examination of the Patient, Discharge Planning, Medication Reconciliation and Communication With Other Providers (Surgery PA) Coding Level of Care Code 69848 INP/OBS DISCH >30 MIN Diagnoses Intra-abdominal abscess K65.1 Hyponatremia E87.1 Current smoker F17.200
[2025-09-02 10:34] VITALS: BP 110/70
--- NOTE | 2025-09-02 10:37 | Surgery Progress Note ---
<Statement entered by Zaida Bo MD - 09/02/25 14:24> I independently saw the patient and I agree with the assessment and plan of care. Date of Service September 02, 2025 Assessment & Plan (1) History of appendectomy: Plan: Pt w/ history of appendectomy last year at [facility] (difficult procedure given op note findings) here w/ RLQ pain w/ concern for possible perforated appendicitis with small abscess (2.8cmx2) WBC 7.4. vitals are stable, afebrile Discussed patient's case with IR yesterday, area too small or not good window to drain He is feeling improved while on IV abx We will allow him to advance his diet and see how he fairs He wants to be discharged if possible, if he continues to do well we would be okay with him going home on a course of oral abx for a couple of weeks and following up with Dr. Bo in a week or two to discuss interval appendectomy once the inflammation settles down and plan for about ~6 week time frame (2) Intra-abdominal abscess: Admission and Anticipated Discharge Date Admission Date: August 31, 2025 Subjective Patient feeling better. Tolerating diet, no n/v. Reports + bowel function. Pain improving. Asking if and when he can go home. Physical Exam Physical Exam: awake/alert, no distress Respiratory: normal respiratory effort Gastrointestinal (Abdomen): Percussion/Palpation: + abdomen tender (RLQ discomfort to palpation ) and abdomen soft Results & Data Vital Signs (Past 12 Hours) Vital Signs Temp Pulse Resp BP BP Pulse Ox O2 Del Method 09/02/25 10:33 98.4 F 70 20 108/70 110/70 96 09/02/25 08:23 98.4 F 70 20 108/70 96 Room Air 09/01/25 22:36 98.4 F 75 18 100/61 97 Room Air PG Care Time/CCT Total # of Minutes Spent Total Time Spent with Patient: Total time spent is greater than 50% in coordination of care (as documented) at patient's floor/unit and/or counseling patient: Coding Level of Care Code 68574 SUB INP/OBS CARE 12/05MIN Diagnoses History of appendectomy Z90.49 Intra-abdominal abscess K65.1
== END 2025-09-02 10:54 | disposition home or self-care (01) | DRG 372 ==
LOC: ED 14:59 → 2N 19:27